=== PATIENT | male | born 1965 | race Caucasian/White ===

== ENCOUNTER 2019-12-03 14:20 | Emergency (ER) | payer MEDICAID ==
[~2019-12-03] VITALS: Ht 188 cm; Wt 89.0 kg
[2019-12-03 14:23] VITALS: BP 135/75
[2019-12-03] MEDS ORDERED: proparacaine 0.5% ophthalmic drops 15ml EACHEYE ONE (15:50)
[2019-12-03] MEDS ORDERED: ciprofloxacin 0.3% 2.5ml ophthalmic solution LEFTEYE ONE (16:10)
[2019-12-03] MEDS ORDERED: CIPR2.5D18 LEFTEYE (16:15)
== END 2019-12-03 16:45 | disposition home or self-care (01) ==
LOC: ER 14:21
DX: H16.002 Unspecified corneal ulcer, left eye (principal); G89.29 Other chronic pain
CPT/HCPCS: 99283